=== PATIENT | female | born 1950 | race Caucasian/White ===

== ENCOUNTER → 2021-08-13 | Outpatient (CLI) | payer MEDICARE ==
--- NOTE | 2021-08-13 16:01 | EKG ---
[place] [address] ELECTROCARDIOGRAM REPORT Name: CARMEN MOLINA Room: [facility]#: [id number] Admission: 08/13/21 Attend Phys: Mariaa Bell MD Discharge: Date of : 50 Date of Service: 08/13/21 1308 Report #: [id number] THIS REPORT FOR: //name// [facility] Test Date: 2021-08-13 Test Time: 13:08:32 Pat Name: CARMEN MOLINA Department: Room: Gender: F Nursery Technician: ALISSON : 1950 Requested By: Mariaa Bell Order Number: [id number] Reading MD: Juan J Dillon Measurements Intervals [place] Rate: 67 P: 83 AR: 145 QRS: 66 QRSD: 89 T: 31 QT: 421 QTc: 445 Interpretive Statements Sinus rhythm Left atrial enlargement RSR' in V1 or V2, probably normal variant No previous ECG available for comparison Electronically Signed On 08-13-2021 16:01:30 CDT by Juan J Dillon [email or web address] <ELECTRONICALLY SIGNED> By: Juan J Dlilon MD, [facility] 08/13/21 1601 1308 1308 Juan J Dillon MD, [facility] /EPI
== END ==
LOC: M.CRD 12:40
PROVIDERS: ATTEND Internal Medicine
DX: Z01.810 Encounter for preprocedural cardiovascular examination (principal); I51.7 Cardiomegaly